=== PATIENT | female | born 1990 | race Caucasian/White ===

== ENCOUNTER 2017-05-05 12:00 | Emergency (ER) | payer MEDICAID ==
[2017-05-05] MEDS ORDERED: NS 0.9% 1000 ML* 1,000 ML IV ONE (12:47)
[2017-05-05] MEDS ORDERED: Promethazine INJ(RESTRICTED)* 25 MG/ML 1 ML VIAL IV ONE (12:47)
[2017-05-05 12:51] LABS: ABS Basophils 0.1 10^3/ul (0-0.2); ABS Eosinophils 0 10^3/ul (0-0.6); ABS Lymphocytes 0.6 10^3/ul (1.0-4.8); ABS Monocytes 0.4 10^3/ul (0-0.8); ABS Neutrophils 9.2 10^3/ul (1.5-7.7); ABS Nucleated RBC 0 10^3/ul; Eosinophil % 0.2 % (0-6); Hematocrit 34 % (35-47); Hemoglobin 11.7 g/dl (12.0-16.0); Lymphocyte % 5.6 % (25-47); Mean Corpuscular HGB Conc 35 g/dl (31-36); Mean Corpuscular Hemoglobin 32 pg (27-31); Mean Corpuscular Volume 92 fL (80-97); Mean Platelet Volume 8 um3 (7.4-10.4); Nucleated Red Blood Cells % 0; Platelet Count 256 10^3/ul (150-450); Red Blood Count 3.68 10^6/ul (4.0-5.4); Red Cell Distribution Width 13 % (10.5-15); White Blood Count 10.3 10^3/ul (3.5-10.8)
[2017-05-05] MEDS ORDERED: Magnesium Sulfate 1 GM IV* 1 GM/100 ML BAG IV ONE (13:02)
[2017-05-05 13:05] LABS: Urine Appearance Clear; Urine Blood Negative (Negative); Urine Color Yellow; Urine Ketones 1+ (Negative); Urine Protein Negative (Negative); Urine Specific Gravity 1.011 (1.010-1.030); Urine Urobilinogen Negative (Negative)
[2017-05-05 13:07] LABS: EGFR Non-African American 145.8 (>60)
[2017-05-05] MEDS ORDERED: Promethazine INJ(RESTRICTED)* 25 MG in NS 0.9% 50 ML* 50 ML IVPB ONE (13:30)
--- NOTE | 2017-05-05 14:14 | ED ---
Headache - HPI Summary HPI Summary: pt here w/ FINK x 3 days. Started as Rt sided FINK which was noticed as an abrupt throbbing and Lt visual change - blurred and partially impaired/missing vision, no aura. She also reports Lt hand numbness and tongue numbness which resolved day of sx onset. She has been "riding it out" without medication as she 's 6 months . Called provider today who recommended trying acetaminophen - she took 1 or 2 grams, does not recall, and came here. She has photophobia, nausea and FINK currently w/ ongoing Lt visual change - blurred. Denies recent illness, URI sx, dehydration, fever, chest pain, ab pain, weakness , rash, cramping, vaginal bleeding/spotting. Baby has been moving same as always. No previous FINK's, migraines, bleeding or vascular d/o's. - History Of Current Complaint Chief Complaint: EDHeadache Stated Complaint: HEADACHE,6 MONTHS PREG Time Seen by Provider: 05/05/17 12:09 Hx Obtained From: Patient - Allergies/Home Medications Allergies/Adverse Reactions: Allergies Allergy/AdvReac Type Severity Reaction Status Date / Time No Known Allergies Allergy Verified 05/05/17 14:07 Home Medications: Home Medications NK [No Home Medications Reported] 05/05/17 [History Confirmed 05/05/17] PMH/Surg Hx/FS Hx/Imm Hx Previously Healthy: Yes Endocrine/Hematology History: Denies: Hx Anticoagulant Therapy, Hx Blood Disorders, Hx Thyroid Disease, Hx Anemia, Hx Unexplained Bleeding, Hx Coagulopothy, Autoimmune Disease Cardiovascular History: Denies: Hx Aneurysm, Hx Atrial Fibrillation, Hx Congenital Heart Disease, Hx Embolism, Hx Hypotension, Hx Hypertension, Hx Rheumatic Fever, Hx Syncope, Hx Valvular Heart Disease Respiratory History: Denies: Hx Asthma GI History: Denies: Hx Cirrhosis Neurological History: Denies: Hx CVA, Hx Headaches, Hx Migraine, Hx Nerve Disease, Hx Peripheral Neuropathy, Hx Transient Ischemic Attacks (TIA) Infectious Disease History: No Infectious Disease History: Denies: Traveled Outside the [place] in Last 30 Days - Social History Lives: With Family Alcohol Use: None Hx Substance Use: No Substance Use Type: Reports: None Hx Tobacco Use: No Smoking Status (MU): Never Smoked Tobacco Review of Systems Constitutional: Negative Negative: Fever, Chills, Fatigue Positive: Photophobia, Blurred Vision. Negative: Diplopia, Drainage, Erythema ENT: Negative Negative: Dental Pain, Sore Throat, Ear Ache, Nasal Discharge Cardiovascular: Negative Negative: Palpitations, Chest Pain Respiratory: Negative Negative: Shortness Of Breath, Cough Positive: Nausea. Negative: Abdominal Pain, Vomiting, Diarrhea Genitourinary: Negative Positive: frequency - has had this throughout . Negative: burning, dysuria, discharge, flank pain, hematuria, incontinence Musculoskeletal: Negative, Other - no neck pain/stiffness Negative: Arthralgia, Myalgia Skin: Negative Positive: Headache. Negative: Weakness, Paresthesia, Numbness, Syncope, Slurred Speech Psychological: Normal - calm but appears to be in pain and concerned All Other Systems Reviewed And Are Negative: Yes Physical Exam Triage Information Reviewed: Yes Vital Signs On Initial Exam: Initial Vitals Temp Pulse Resp BP Pulse Ox 99.5 F 94 20 124/54 98 05/05/17 12:03 05/05/17 12:03 05/05/17 12:03 05/05/17 12:03 05/05/17 12:03 Vital Signs Reviewed: Yes Appearance: Positive: Well-Appearing, Well-Nourished, Pain Distress - pt sitting on edge of stretcherw/ lights out Skin: Positive: Warm, Skin Color Reflects Adequate Perfusion, Dry Head/Face: Positive: Normal Head/Face Inspection - NTTP, no gross deformity Eyes: Positive: Normal, EOMI, AAMYA ENT: Positive: Normal ENT inspection, Hearing grossly normal, Pharynx normal - mucosa moist, TMs normal. Negative: Nasal congestion, Nasal drainage Neck: Positive: Supple, Nontender - no gross thyromegaly, No Lymphadenopathy. Negative: Nuchal Rigidity Respiratory/Lung Sounds: Positive: Clear to Auscultation, Breath Sounds Present Cardiovascular: Positive: Normal, RRR, Pulses are Symmetrical in both Upper and Lower Extremities, Other - no bruits appreciated, S1, S2. Negative: Murmur, Rub Abdomen Description: Positive: Nontender, No Organomegaly, Soft Bowel Sounds: Positive: Present Musculoskeletal: Positive: Normal, Strength/ROM Intact - 5/5 in UE's and LE's equal B/L Neurological: Positive: Sensory/Motor Intact - UE's and LE's equal B/L w/ gross touch and w/ movements, Alert, Oriented to Person Place, Time, CN Intact II-III - EXCEPT she reports blurred vision in Lt eye, Reflexes Intact, Facial Symmetry , Speech Normal. Negative: Finger to Nose - Pt is able to connect her finger to my finger most times but is askew a few times, Pronator Drift Present Psychiatric: Positive: Normal - Kenneth Coma Scale Coma Scale Total: 15 Diagnostics - Vital Signs Vital Signs Temp Pulse Resp BP Pulse Ox 05/05/17 14:00 74 94/47 99 05/05/17 13:30 77 105/55 99 05/05/17 13:00 78 109/61 98 05/05/17 12:32 86 114/58 98 05/05/17 12:30 86 99 05/05/17 12:03 99.5 F 94 20 124/54 98 - Laboratory Lab Results: Lab Results 05/05/17 05/05/17 05/05/17 Range/Units 12:34 12:34 12:34 WBC (3.5-10.8) 10^3/ul RBC (4.0-5.4) 10^6/ul Hgb (12.0-16.0) g/dl Hct (35-47) % MCV (80-97) fL MCH (27-31) pg MCHC (31-36) g/dl RDW (10.5-15) % Plt Count (150-450) 10^3/ul MPV (7.4-10.4) um3 Neut % (Auto) (38-83) % Lymph % (Auto) (25-47) % [place] % (Auto) (1-9) % Eos % (Auto) (0-6) % Baso % (Auto) (0-2) % Absolute Neuts (auto) (1.5-7.7) 10^3/ul Absolute Lymphs (auto) (1.0-4.8) 10^3/ul Absolute Monos (auto) (0-0.8) 10^3/ul Absolute Eos (auto) (0-0.6) 10^3/ul Absolute Basos (auto) (0-0.2) 10^3/ul Absolute Nucleated RBC 10^3/ul Nucleated RBC % ESR (0-14) mm/Hr APTT 28.7 (26.0-36.3) seconds Sodium (133-145) mmol/L Potassium (3.5-5.0) mmol/L Chloride (101-111) mmol/L Carbon Dioxide (22-32) mmol/L Anion Gap (2-11) mmol/L BUN (6-24) mg/dL Creatinine (0.51-0.95) mg/dL Est GFR ( Amer) (>60) Est GFR (Non-Af Amer) (>60) BUN/Creatinine Ratio (8-20) Glucose (70-100) mg/dL Lactic Acid 0.9 (0.5-2.0) mmol/L Calcium (8.6-10.3) mg/dL Magnesium (1.9-2.7) mg/dL Total Bilirubin (0.2-1.0) mg/dL AST (13-39) U/L ALT (7-52) U/L Alkaline Phosphatase (34-104) U/L C-Reactive Protein (< 5.00) mg/L Total Protein (6.4-8.9) g/dL Albumin (3.2-5.2) g/dL Globulin (2-4) g/dL Albumin/Globulin Ratio (1-3) TSH (0.34-5.60) mcIU/mL Urine Color Yellow Urine Appearance Clear Urine pH 6.0 (5-9) Ur Specific [place] 1.011 (1.010-1.030) Urine Protein Negative (Negative) Urine Ketones 1+ H (Negative) Urine Blood Negative (Negative) Urine Nitrate Negative (Negative) Urine Bilirubin Negative (Negative) Urine Urobilinogen Negative (Negative) Ur Leukocyte Esterase Negative (Negative) Urine Glucose Negative (Negative) Influenza A (Rapid) (Negative) Influenza B (Rapid) (Negative) 05/05/17 05/05/17 05/05/17 Range/Units 12:34 12:34 12:54 WBC 10.3 (3.5-10.8) 10^3/ul RBC 3.68 L (4.0-5.4) 10^6/ul Hgb 11.7 L (12.0-16.0) g/dl Hct 34 L (35-47) % MCV 92 (80-97) fL MCH 32 H (27-31) pg MCHC 35 (31-36) g/dl RDW 13 (10.5-15) % Plt Count 256 (150-450) 10^3/ul MPV 8 (7.4-10.4) um3 Neut % (Auto) 89.6 H (38-83) % Lymph % (Auto) 5.6 L (25-47) % [place] % (Auto) 4.1 (1-9) % Eos % (Auto) 0.2 (0-6) % Baso % (Auto) 0.5 (0-2) % Absolute Neuts (auto) 9.2 H (1.5-7.7) 10^3/ul Absolute Lymphs (auto) 0.6 L (1.0-4.8) 10^3/ul Absolute Monos (auto) 0.4 (0-0.8) 10^3/ul Absolute Eos (auto) 0 (0-0.6) 10^3/ul Absolute Basos (auto) 0.1 (0-0.2) 10^3/ul Absolute Nucleated RBC 0 10^3/ul Nucleated RBC % 0 ESR 17 H (0-14) mm/Hr APTT (26.0-36.3) seconds Sodium 133 (133-145) mmol/L Potassium 3.4 L (3.5-5.0) mmol/L Chloride 106 (101-111) mmol/L Carbon Dioxide 20 L (22-32) mmol/L Anion Gap 7 (2-11) mmol/L BUN 4 L (6-24) mg/dL Creatinine 0.51 (0.51-0.95) mg/dL Est GFR ( Amer) 187.5 (>60) Est GFR (Non-Af Amer) 145.8 (>60) BUN/Creatinine Ratio 7.8 L (8-20) Glucose 102 H (70-100) mg/dL Lactic Acid (0.5-2.0) mmol/L Calcium 8.9 (8.6-10.3) mg/dL Magnesium 1.8 L (1.9-2.7) mg/dL Total Bilirubin 0.50 (0.2-1.0) mg/dL AST 13 (13-39) U/L ALT 9 (7-52) U/L Alkaline Phosphatase 40 (34-104) U/L C-Reactive Protein 8.57 H (< 5.00) mg/L Total Protein 6.4 (6.4-8.9) g/dL Albumin 3.8 (3.2-5.2) g/dL Globulin 2.6 (2-4) g/dL Albumin/Globulin Ratio 1.5 (1-3) TSH 0.75 (0.34-5.60) mcIU/mL Urine Color Urine Appearance Urine pH (5-9) Ur Specific [place] (1.010-1.030) Urine Protein (Negative) Urine Ketones (Negative) Urine Blood (Negative) Urine Nitrate (Negative) Urine Bilirubin (Negative) Urine Urobilinogen (Negative) Ur Leukocyte Esterase (Negative) Urine Glucose (Negative) Influenza A (Rapid) Negative (Negative) Influenza B (Rapid) Negative (Negative) Result Diagrams: 05/05/17 12:34 05/05/17 12:34 Lab Statement: Any lab studies that have been ordered have been reviewed, and results considered in the medical decision making process. Headache Course/Dx - Course Course Of Treatment: Pt presents w/ Rt sided FINK x 3 days. Abrupt onset and neuro deficits initially of Lt hand numbness and tongue numbness. This resolved same day - no associated weakness. She is here today w/ persistent FINK and Lt visual field change. at 6 months . HR per OBGYN high 120's and pt and explosive ordnance technician both feel movement. Abnormal labs are as follows: RBC 3.6 HGB 11.7 HCT 34 NEUT 89.6 LYMP 5.6 ABS NEUT 9.2 ABS LYMPH 0.6 ESR 17 K 3.4 CO 20 BUN 4 GLUC 102 MAG 1.8 CRP 8.57 and U/A +1 ketones. Influenza (-). These results along with vitals do not indicate infection, acute hemorrhage. Diff sx pre-eclempsia, aneurysm, embolism, SAH, migraine - discussed w/ Dr. Appiah early on who recommended meds (1 gram magnesium, steroid - IVF and promethazine had already been ordered - no toradol as pt is ) and monitoring - if no change, call back. Pt initially received 1 L NS, promethazine, and magnesium 1 gram IV. She had mild improvement of sx - pain from 9/10 to 6/10. Administered dexamethasone at that time for better improvement as she reports she feels good lying down however Rt sided FINK pounding w/ sitting up. After 30 mins+ of dexamethasone, she reports feeling worse than prior tx. Discussed w/ Dr. Appiah who came to see pt and concerned for more severe issues as well. MRA, MRV w/o contrast ordered as she is . Compazine with benadryl was also ordered prior to MRI. If no hemorrhage identified on MR's, Dr. Appiah suggests LP. Discussed w/ Dr. Romero who will take sign out. Pt stable at time of transition of care. - Diagnoses Provider Diagnoses: Visual field defect of left eye, Right-sided headache Discharge - Discharge Plan Condition: Guarded Disposition: OTHER Discharge Disposition Comment: sign out Referrals: No Primary Care Phys,NOPCP [Primary Care Provider] -
[2017-05-05] MEDS ORDERED: Dexamethasone IV* 4 MG/ML 1 ML (4 MG) IV SLOW PU ONE (14:59)
[2017-05-05] MEDS ORDERED: diPHENhydraMINE IV* 50 MG/ML 1 ml VIAL (BENADRYL) IV ONE (18:03)
[2017-05-05] MEDS ORDERED: PROCHLORPERAZINE INJ 5 MG/ML 2 ML VIAL IV ONE (18:06)
--- NOTE | 2017-05-05 19:51 | RAD ---
INDICATION: Headaches COMPARISON: None TECHNIQUE: 3-D phase contrast, axial source images was acquired. Reconstructed images of the anterior posterior circulation were generated. FINDINGS: Right carotid: The carotid artery at the skull base, carotid siphon, and carotid termination appear normal. Left carotid: The carotid artery at the skull base, carotid siphon, and carotid termination appear normal. Right middle and anterior cerebral arteries: There are no MR angiographic abnormalities of the middle or anterior cerebral arteries. Left middle and anterior cerebral arteries: There are no MR angiographic abnormalities of the middle or anterior cerebral arteries Right vertebral: The MR angiographic appearance of the visualized vertebral artery is normal. Left vertebral: The MR angiographic appearance of the visualized vertebral artery is normal. Basilar artery: The basilar artery and basilar tip appear normal. Posterior cerebral arteries: The distal distribution of the right and left posterior cerebral arteries is normal. [place]: The MR angiographic appearance of the [place] is normal. Source images show no focal brain parenchymal abnormalities or abnormal areas of enhancement. IMPRESSION: NEGATIVE EXAMINATION.
--- NOTE | 2017-05-05 19:58 | RAD ---
INDICATION: Headaches COMPARISON: None TECHNIQUE: Multiplanar 2-D [id number] imaging was performed. 3-D reconstructed images were generated. There is no evidence of thrombus within the dural sinuses are larger cortical venous structures. The MR appearance is within normal limits. IMPRESSION: NO EVIDENCE OF CEREBRAL VENOUS THROMBOSIS
--- NOTE | 2017-05-05 22:23 | CONS ---
NEUROLOGY CONSULTATION NOTE: DATE OF CONSULTATION: 05/05/17 - EMERGENCY DEPT REFERRING PROVIDER: DEMARIO Mckeon LOCATION: She is in the emergency room. CHIEF COMPLAINT: Headache. HISTORY OF PRESENT ILLNESS: Mina Araujo is a 26-year-old right-handed woman who is 6 months and was in her usual state of health on Thursday. Two days ago in the middle of the day, when she bent down to pick something up and when she stood up, had a severe apical headache. It has been present ever since. It became more right sided than left sided over time. Shortly after the headache, she noted that there was diminished vision in her left visual field. Has persisted ever since as well, but an hour after that, she felt numbness in the left side of her face and hand. That resolved in an hour or less. The headache has persisted for several days. It was worse at times when she would lie down and so she would have to sit up or stand and other times she felt better lying down. She has not had problems with headaches in the past. She is not on any medications other than vitamins. There is no history of hypertension or hypotension or clotting disorders. She is a nonsmoker. There is no family history of headache disorders. Her brother who is alive had some type of pediatric brain tumor. PAST MEDICAL HISTORY: Benign. She has been in excellent health. MEDICATIONS: She does not take any medications at home other than vitamins. ALLERGIES: She does not have any drug allergies. SOCIAL HISTORY: She is a nonsmoker, does not drink alcohol during the , does not do drugs. REVIEW OF SYSTEMS: There is no history of cardiac disease, clotting disorders, rheumatological problems. There is no history of endocrine disorders. has been going along uneventfully. PHYSICAL EXAMINATION: She is well hydrated and well nourished. Temperature was 99.5 by temporal scan when she came in. Blood pressures running about 150/ 90 when last checked, but was 80 to 90 systolic over 50 earlier. Heart rate is in the 80s and regular. Respiratory rate is 20 and oxygen saturation is 98% on room air. Heart is in a regular rate and rhythm and I do not hear any murmurs. Carotid pulses are present and no cervical bruits. Oral mucosa is moist and there is no pharyngeal erythema or exudate. She has pain with neck flexion in her neck and up the back of her head, but she is able to do it. Straight leg raising is negative bilaterally. Skin is warm and dry. Neurologically, pupils react equally from 5 mm down to 2.5. Eye movements are normal. Visual strong are suspicious for partial left superior quadrantanopsia. Funduscopic exam reveals a sharp disc on the right and it appears to be a normal disc on the left as well, although I did not get as good a view. She is photophobic. Eye movements are normal. Facial musculature is symmetric. Facial sensation to light touch is symmetric. Palate and tongue appear normal and speech is clear. Motor exam reveals antigravity strength symmetrically in all limbs. There is no tremor, asterixis, or myoclonus. Reflexes are hypoactive, but present in the extremities. Her plantar responses are flexor bilaterally. She is alert and oriented to person, place and time. She is an excellent historian with intact memory. Language is fluent. Attention, concentration, and fund of knowledge are all adequate. LABORATORY DATA: Includes a chemistry profile notable for carbon dioxide at 20 and otherwise unremarkable. Glucose is 102 and magnesium was a little bit low at 1.8. CRP is mildly elevated at 8.57 and TSH is normal at 0.75. CBC notable for hemoglobin of 11.7, white cell count 10.3, 90% neutrophils. Platelet count is 256,000. Sedimentation rate is mildly elevated at 17. Urinalysis is clear. Rapid influenza A and B tests are negative. IMPRESSION: A new onset headache which may be migraine, but was of sudden onset and severe. She has persistent visual symptoms if not deficits. Therefore, I think she does need a lumbar puncture to rule out a subarachnoid hemorrhage or a meningitis and also MRI scan of the brain. We may need to consider MR venogram, but I do not want to give her contrast unless it is necessary, so I would first do a noncontrast MRI of the brain and then check the spinal fluid. If those are both completely normal, then we may just continue symptomatic treatment with antiemetics such as possibly Compazine plus diphenhydramine and another dose of magnesium. I have discussed my impression with Denise Fang, who is contacting Radiology to arrange the MRI scan and then subsequent lumbar puncture. [id number]/[facility] #: [id number] [facility]
[2017-05-06 00:37] VITALS: BP 102/56
--- NOTE | 2017-05-06 20:34 | ED ---
Nicky Del Rosario Emily, scribed for Aurelio Chacon MD on 05/06/17 at 0013 . Progress - Progress Note Progress Note: Sign of from Dr. Romero upon shift change pending CSF. Re-evaluation at 0007. BP 90/60. Awake and alert. Vision improving. Migraine improving. Pt is stable for discharge to home. Re-Evaluation - Re-Evaluation First Eval Re-Evaluation Time: 00:07 Change: Improved Course/Dx - Course Course Of Treatment: Pt presents w/ Rt sided FINK x 3 days. Abrupt onset and neuro deficits initially of Lt hand numbness and tongue numbness. This resolved same day - no associated weakness. She is here today w/ persistent FINK and Lt visual field change. at 6 months . 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 Abnormal labs are as follows: RBC 3.6 HGB 11.7 HCT 34 NEUT 89.6 LYMP 5.6 ABS NEUT 9.2 ABS LYMPH 0.6 ESR 17 K 3.4 CO 20 BUN 4 GLUC 102 MAG 1.8 CRP 8.57 and U/A +1 ketones. Influenza (-). These results along with vitals do not indicate infection, acute hemorrhage. Diff sx pre-eclempsia, aneurysm, embolism, SAH, migraine - discussed w/ Dr. Appiah early on who recommended meds (1 gram magnesium, steroid - IVF and promethazine had already been ordered - no toradol as pt is ) and monitoring - if no change, call back. Pt initially received 1 L NS, promethazine, and magnesium 1 gram IV. She had mild improvement of sx - pain from 01/04 to 10/04. Administered dexamethasone at that time for better improvement as she reports she feels good lying down however Rt sided FINK pounding w/ sitting up. After 30 mins+ of dexamethasone, she reports feeling worse than prior tx. Discussed w/ Dr. Appiah who came to see pt and concerned for more severe issues as well. MRA, MRV w/o contrast ordered as she is . Compazine with benadryl was also ordered prior to MRI. If no hemorrhage identified on MR's, Dr. Appiah suggests LP. Discussed w/ Dr. Romero who will take sign out. Pt stable at time of transition of care. - Diagnoses Provider Diagnoses: Right-sided headache, Blurred vision, left eye The documentation as recorded by the Nicky vega Emily accurately reflects the service I personally performed and the decisions made by me, Aurelio Chacon MD.
--- NOTE | 2017-05-07 13:54 | ED ---
Del Del Rosario Stephanie, scribed for Del Romero MD on 05/05/17 at 2038 . Progress - Progress Note Progress Note: Upon re-eval, the patient's headache has decreased down to a 3 in severity. ED physician discussed lumbar puncture risks to pt. She and her will discuss the risks. Lumbar Puncture Note: L4 L5 L lateral decubitus. Risks and benefits of the procedure were explained to the patient and excepted. 4 mL of clear fluid were obtained and tolerated well. Opening pressure was 17. Dr. Appiah evaluated pt in ED. See his dictated note. Told him of significant improvement in symptoms after Compazine. PT still having some visual deficit. Td recommended DC if CSF WNL. Signed out to [facility] with CSF pending. Re-Evaluation - Re-Evaluation First Eval Re-Evaluation Time: 00:07 Change: Improved Course/Dx - Course Course Of Treatment: Pt presents w/ Rt sided FINK x 3 days. Abrupt onset and neuro deficits initially of Lt hand numbness and tongue numbness. This resolved same day - no associated weakness. She is here today w/ persistent FINK and Lt visual field change. at 6 months . HR per OBGYN high 120's and pt and geotechnical field technician both feel movement. Abnormal labs are as follows: RBC 3.6 HGB 11.7 HCT 34 NEUT 89.6 LYMP 5.6 ABS NEUT 9.2 ABS LYMPH 0.6 ESR 17 K 3.4 CO 20 BUN 4 GLUC 102 MAG 1.8 CRP 8.57 and U/A +1 ketones. Influenza (-). These results along with vitals do not indicate infection, acute hemorrhage. Diff sx pre-eclempsia, aneurysm, embolism, SAH, migraine - discussed w/ Dr. Appiah early on who recommended meds (1 gram magnesium, steroid - IVF and promethazine had already been ordered - no toradol as pt is ) and monitoring - if no change, call back. Pt initially received 1 L NS, promethazine, and magnesium 1 gram IV. She had mild improvement of sx - pain from 9/10 to 6/10. Administered dexamethasone at that time for better improvement as she reports she feels good lying down however Rt sided FINK pounding w/ sitting up. After 30 mins+ of dexamethasone, she reports feeling worse than prior tx. Discussed w/ Dr. Appiah who came to see pt and concerned for more severe issues as well. MRA, MRV w/o contrast ordered as she is . Compazine with benadryl was also ordered prior to MRI. If no hemorrhage identified on MR's, Dr. Appiah suggests LP. Discussed w/ Dr. Romero who will take sign out. Pt stable at time of transition of care. - Diagnoses Provider Diagnoses: Right-sided headache, Blurred vision, left eye The documentation as recorded by the Del vega Stephanie accurately reflects the service I personally performed and the decisions made by me, Del Romero MD.
== END 2017-05-06 00:19 | disposition home or self-care (01) ==
LOC: ED 12:00
DX: O26.892 Other specified pregnancy related conditions, second trimester (principal); Z3A.00 Weeks of gestation of pregnancy not specified; R51 Headache; H53.40 Unspecified visual field defects
CPT/HCPCS: 36415; 70544; 80053; 81003; 82945; 83605; 83735; 84157; 84443; 85025; 85652; 85730; 86140; 87070; 87205; 87502; 89051; 93005; 96361; 96365; 96367; 96375; 99284; J0780; J1100; J1200; J2550; J3475

== ENCOUNTER 2017-09-03 05:01 | Inpatient (IN) | payer OTHER ==
--- NOTE | 2017-09-03 05:33 | PN ---
Progress Note - Progress Note Date of Service: 09/03/17 Note: S: Paged by RN. Pt presented through the ER with c/o uterine contractions at 41 + weeks. Denies LOF. No VB. Reports +FM O: BP 129/68 HR 69 FHT: 125bpm. Moderate variability. No decels UCs q 2-4 min VE per RN 1cm/50%/vtx ballotable A: IUP at 41+ weeks in latent labor No evidence of metabolic acidemia P: Outpatient orders input. RN to re-check pt in one hour or sooner PRN and report to CNM
--- NOTE | 2017-09-03 07:07 | HP ---
General Information - General Information Maternal Age: 27 Grav: 3 Para: 0 SAB: 0 IEA: 2 Estimated Due Date: 08/25/17 Determined By: LMP Gestational Age in Weeks and Days: 41 Weeks and 2 Days Maternal Blood Type and Rh: O Negative - Results this Serology/RPR Result: Non-Reactive Rubella Result: Immune HBsAg Result: Negative HIV Result: Negative GBS Culture Result: Negative Past Medical History Delivery History: See Records Delivery History Comment: primip Pertinent Past Medical History: See Records Past Medical History Comment: Hx migraine Pertinent Past Surgical History: None Pertinent Family History: See Records Family History Comment: PGF: COPD MGM: bone cancer - Antepartal Records Antepartal Records: Reviewed, Uncomplicated Review of Systems Constitutional: Uncomfortable - with UCs CV Complaint: No Respiratory: Shortness of Breath: No Gastrointestinal: No Nausea/Vomiting, Normal Bowel Movement Genitourinary: No Dysuria, No Bleeding, No Leaking Fluid Musculoskeletal: Contractions Neurological: No Headache Movement: Normal Exam Allergies/Adverse Reactions: Allergies No Known Allergies Allergy (Verified 06/17/17 14:08) BP 129/68 HR 71 RR 18 T 98.4 - Measurements Height: 5 ft 8 in Weight: 189 lb Weight in lbs: 189 Body Mass Index (BMI): 28.7 Pre- Weight: 155 lb 0.006 oz Weight Gained This : 33.999 lbs and 0.010 ozs - Exam Abdomen: No Upper Quadrant Pain Breast: Breast Exam Deferred CVA: No CVA Tenderness Extremities: Edema - Bilateral pedal edema. 1+ Heart: Normal Rhythm/Heart Sounds HEENT: No Significant Findings Lungs: Clear Bilaterally Rectal: Rectal Exam Deferred Reflexes: DTR 2+ Thyroid: No Thyromegaly - Abdominal Exam Abdomen Exam: Non-Tender - between UCs, Fundal Height Consistent with Dates Abdomen Exam Comment: UCs q 2-4 min - Ultrasound/Biophysical Profile Ultrasound Status: Not Done Targeted Exam Findings See L&D Outpatient Visit Provider Note for Findings: N/A Cervical Exam: 2cm Effacement: 50% Station: -3 Presenting Part: Vertex Membrane Status: Intact Sterile Speculum Exam: Not done Bleeding/Discharge: None EFM Findings - External Monitor Findings Baseline Heart Rate: 125 External Monitor Findings: No Pattern of Variable or Late Decelerations, Variability Moderate, Baseline Stable, Accelerations Absent External Monitor Findings Comment: No evidence of metabolic acidemia Contractions: Regular, Mild, Moderate, 45-90 Seconds Contraction Frequency: q2-4 minutes Assessment/Plan - Reason for Visit Reason for Visit: Labor - Obstetrical Risk Factors Risk Factors Comment: None. Hx 1/2 PPD smoking prior to . Quit with + urine hCG - Plan Plan: Observe, Early Labor Plan Comment: Admit. Expectant management for now. Report to Carol Wolfe CNM who will assume care at 0800
[2017-09-03] MEDS ORDERED: RHO D Immune Globulin (HUMAN)* 300 MCG = 1,500 I.U. INJ IM ONE (10:16)
[2017-09-03] MEDS ORDERED: Glycerin ADULT SUPP PR PRN (10:16)
[2017-09-03] MEDS ORDERED: OXYTOCIN* 10 UNITS/ML 1 ML VIAL IM ONE (10:16)
[2017-09-03] MEDS ORDERED: Acetaminophen TAB* 325 MG PO PRN (10:16)
[2017-09-03] MEDS ORDERED: Witch Hazel PAD* JAR TOPICAL PRN (10:16)
[2017-09-03] MEDS ORDERED: Ibuprofen TAB* 600 MG PO PRN (10:16)
[2017-09-03] MEDS: Docusate CAP* 100 MG PO SCH (15:56)
[2017-09-03] MEDS: Dibucaine 1% 28.35 GM TUBE PR PRN (17:40)
[2017-09-04] MEDS: Docusate CAP* 100 MG PO SCH ×4 (00:24→20:39)
[2017-09-04 07:12] LABS: Hematocrit 30 % (35-47); Hemoglobin 10.3 g/dl (12.0-16.0); Mean Corpuscular HGB Conc 35 g/dl (31-36); Mean Corpuscular Hemoglobin 32 pg (27-31); Mean Corpuscular Volume 93 fL (80-97); Mean Platelet Volume 8.1 um3 (7.4-10.4); Platelet Count 248 10^3/ul (150-450); Red Cell Distribution Width 13 % (10.5-15); White Blood Count 10.7 10^3/ul (3.5-10.8)
[2017-09-04] MEDS ORDERED: Ferrous Gluconate TAB* 324 MG TAB PO SCH (09:00)
[2017-09-04] MEDS ORDERED: Tetan/Diph/Pertus SYR(Tdap)* 0.5 ML SYR(BOOSTRIX) use SYR IM ONE (09:00)
--- NOTE | 2017-09-04 11:36 | PTEDU ---
Patient Name: FEDERICO JUAREZ ANNFEDERICO selected video: Never Ever Shake a Baby to view on 09/04/2017 at 11:35:00 AM [id number]
[2017-09-05] MEDS: Dibucaine 1% 28.35 GM TUBE PR PRN (07:55)
[2017-09-05] MEDS: Docusate CAP* 100 MG PO SCH (08:00)
[2017-09-05 08:10] VITALS: BP 113/65
== END 2017-09-05 13:55 | disposition home or self-care (01) | DRG 560 ==
LOC: MCHOBOUT 05:01 → MCHOB 06:41
PROVIDERS: ADMIT Midwife; ATTEND Midwife
PROC: 10E0XZZ Delivery of Products of Conception, External Approach (ICD-10-PCS; principal; 2017-09-03)
PROC: 0HQ9XZZ Repair Perineum Skin, External Approach (ICD-10-PCS; 2017-09-03)
DX: O48.0 Post-term pregnancy (principal); O70.0 First degree perineal laceration during delivery; O77.0 Labor and delivery complicated by meconium in amniotic fluid; Z3A.41 41 weeks gestation of pregnancy; Z37.0 Single live birth; Z87.891 Personal history of nicotine dependence
CPT/HCPCS: 36415; 85027; 85461; 86900; 86901; 90715; 99282; A9270-GY; J2590; J2790

== ENCOUNTER 2018-02-04 10:49 | Emergency (ER) | payer MEDICAID ==
--- NOTE | 2018-02-04 12:14 | ED ---
Abdominal Pain/Female - HPI Summary HPI Summary: 27 y/o female presents to the ED c/o R side ABD pain described as cramping, lasting months. Pt c/o ABD swelling today as well. Pain aggravated with deep breaths, becomes a sharp pain. Pain rated 6-7/10 in severity. Symptoms appeared after the pt had her baby 5 months ago. Pt seen at Urgent Care. Denies PMHx and Sx. - History of Current Complaint Chief Complaint: EDAbdPain Stated Complaint: ABD PAIN Time Seen by Provider: 02/04/18 11:57 Hx Obtained From: Patient Onset/Duration: Lasting Weeks, Still Present Timing: Constant Severity Currently: Moderate Pain Intensity: 6 Pain Scale Used: 0-10 Numeric Location: Discrete At: RUQ Character: Sharp - with deep breaths, Cramping Aggravating Factor(s): Deep Breaths Alleviating Factor(s): Nothing Associated Signs and Symptoms: Positive: Other: - ABD swelling Allergies/Adverse Reactions: Allergies Allergy/AdvReac Type Severity Reaction Status Date / Time No Known Allergies Allergy Verified 02/04/18 11:13 PMH/Surg Hx/FS Hx/Imm Hx Previously Healthy: No Endocrine/Hematology History: Denies: Hx Anticoagulant Therapy, Hx Blood Disorders, Hx Diabetes, Hx Thyroid Disease, Hx Anemia, Hx Unexplained Bleeding Cardiovascular History: Denies: Hx Aneurysm, Hx Atrial Fibrillation, Hx Congenital Heart Disease, Hx Embolism, Hx Hypotension, Hx Hypertension, Hx Pacemaker/ICD, Hx Rheumatic Fever , Hx Syncope, Hx Valvular Heart Disease Respiratory History: Denies: Hx Asthma GI History: Denies: Hx Cirrhosis History: Denies: Hx Renal Disease Sensory History: Denies: Hx Hearing Aid Neurological History: Denies: Hx CVA, Hx Headaches, Hx Migraine, Hx Nerve Disease, Hx Peripheral Neuropathy, Hx Transient Ischemic Attacks (TIA) Psychiatric History: Denies: Hx Panic Disorder - Surgical History Surgery Procedure, Year, and Place: WISDOM TEETH Infectious Disease History: No Infectious Disease History: Denies: Traveled Outside the [place] in Last 30 Days - Social History Alcohol Use: None Hx Substance Use: No Substance Use Type: Reports: None Hx Tobacco Use: No Smoking Status (MU): Never Smoked Tobacco Review of Systems Constitutional: Negative Eyes: Negative ENT: Negative Cardiovascular: Negative Respiratory: Negative Positive: Abdominal Pain, Other - ABD swelling Genitourinary: Negative Musculoskeletal: Negative Skin: Negative Neurological: Negative Psychological: Normal All Other Systems Reviewed And Are Negative: Yes Physical Exam - Summary Physical Exam Summary: VITAL SIGNS: Reviewed. GENERAL: Patient is a well-developed and nourished female who is lying comfortable in the stretcher. Patient is not in any acute respiratory distress. HEAD AND FACE: Normocephalic and atraumatic. EYES: PERRLA, EOMI x 2, No injected conjunctiva. EARS: Hearing grossly intact. Ear canals and tympanic membranes are WNL. MOUTH: Oropharynx within normal limits. NECK: Supple, trachea is midline, no adenopathy, no JVD. CHEST: Symmetric, no tenderness at palpation LUNGS: Clear to auscultation bilaterally. No wheezing or crackles. CVS: RRR, S1 and S2 present, no murmurs or gallops appreciated. ABDOMEN: Soft, positive RUQ tenderness. No signs of distention. Positive bowel sounds. No rebound no guarding, and no masses palpated. No abdominal bruit or pulsations. EXTREMITIES: FROM in all major joints, no edema, no cyanosis or clubbing. NEURO: Alert and oriented x 3. No acute neurological deficits. Speech is normal. SKIN: Dry and warm Triage Information Reviewed: Yes Vital Signs On Initial Exam: Initial Vitals Temp Pulse Resp BP Pulse Ox 97.9 F 111 15 139/107 98 02/04/18 11:09 02/04/18 11:09 02/04/18 11:09 02/04/18 11:09 02/04/18 11:09 Vital Signs Reviewed: Yes Diagnostics - Vital Signs Vital Signs Temp Pulse Resp BP Pulse Ox 02/04/18 11:09 97.9 F 111 15 139/107 98 - Laboratory Result Diagrams: 02/04/18 12:26 02/04/18 12:26 Lab Statement: Any lab studies that have been ordered have been reviewed, and results considered in the medical decision making process. - Radiology CXR Xray Interpretation: No Acute Changes - No active cardiopulmonary disease Radiology Interpretation Completed By: Radiologist - ED PHYSICIAN REVIEWS AND AGREES - Ultrasound No standard instances Ultrasound Interpretation Completed By: Radiologist - GALLBLADDER US - NO ACUTE SONOGRAPHIC PATHOLOGY OF THE VISUALIZED PORTION OF THE ABDOMEN. ED PHYSICIAN REVIEWS AND AGREES - EKG 1 EKG Interpretation: SR @ [address] [place], similar to EKG done on Re-Evaluation - Re-Evaluation 1 Re-Evaluation Time: 14:40 Comment: discuss plan to d/c Abdominal Pain Fem Course/Dx - Course Course Of Treatment: 27 y/o female presents to the ED c/o R side ABD pain described as cramping, lasting months. Pt c/o ABD swelling today as well. Pain aggravated with deep breaths, becomes a sharp pain. Pain rated 6-7/10 in severity. Symptoms appeared after the pt had her baby 5 months ago. Pt seen at Urgent Care. Denies PMHx and Sx. Chest x-ray impression: No active cardiopulmonary disease. Blood tests without any significant abnormality. Gallbladder ultrasound impression: No acute sonographic pathology of the visualized portion of the abdomen. D-dimer is less than 200 and has since the patient is not having any shortness of breath or hypoxia or tachycardia I have low suspicion for PE. Chest x-ray impression: No active cardiopulmonary disease. At this point I offered the patient Toradol for the pain. Since TEST results are negative I offered the patient an abdominopelvic CT however the patient declined. I discussed all the findings and test results with the patient. Patient was instructed to return to the emergency room immediately if any of the symptoms return or worsens. Plan of care was discussed with the patient and understands and agrees. All questions were answered at patient satisfaction. There were no further complaints or concerns. Lung exam before discharge: CTA B/L. Good air exchange. No wheezing or crackles heard. CVS: S1 and S2 present. No murmurs appreciated. Patient is alert and oriented x 3. Patient is hemodynamically stable. Patient will be discharged home with follow up PCP in the next 2-3 days - Diagnoses Differential Diagnosis: Positive: Constipation, Urinary Tract Infection Provider Diagnoses: RUQ abdominal pain Discharge - Sign-Out/Discharge Documenting (check all that apply): Patient Departure - Discharge Plan Condition: Stable Disposition: HOME Prescriptions: Omeprazole CAP* [Prilosec CAP* 20 MG] 20 mg PO DAILY #20 Patient Education Materials: Abdominal Pain (ED) Referrals: [facility] [Outside] - 4 Days (PLEASE F/U IN 3-5 DAYS) Additional Instructions: RETURN TO THE ED FOR WORSENING SYMPTOMS - Billing Disposition and Condition Condition: STABLE Disposition: Home - Attestation Statements Document Initiated by Scribe: Yes Documenting Scribe: Cullen Wilson Provider For Whom Scribe is Documenting (Include Credential): Marquis Bey MD Scribe Attestation: I, Cullen Wilson, scribed for Marquis Bey MD on 02/04/18 at 1757. Scribe Documentation Reviewed: Yes Provider Attestation: The documentation as recorded by the Cullen vega accurately reflects the service I personally performed and the decisions made by me, Marquis Bey MD
[2018-02-04 12:52] LABS: ABS Basophils 0 10^3/ul (0-0.2); ABS Eosinophils 0 10^3/ul (0-0.6); ABS Lymphocytes 0.6 10^3/ul (1.0-4.8); ABS Monocytes 0.4 10^3/ul (0-0.8); ABS Neutrophils 2.5 10^3/ul (1.5-7.7); ABS Nucleated RBC 0 10^3/ul; Eosinophil % 0.2 % (0-6); Hematocrit 36 % (35-47); Hemoglobin 12.1 g/dl (12.0-16.0); Mean Corpuscular HGB Conc 34 g/dl (31-36); Mean Corpuscular Hemoglobin 31 pg (27-31); Mean Corpuscular Volume 93 fL (80-97); Mean Platelet Volume 8.9 um3 (7.4-10.4); Nucleated Red Blood Cells % 0.1; Platelet Count 205 10^3/ul (150-450); Red Blood Count 3.88 10^6/ul (4.00-5.40); Red Cell Distribution Width 15 % (10.5-15); White Blood Count 3.6 10^3/ul (3.5-10.8)
[2018-02-04 13:16] LABS: EGFR Non-African American 92.7 (>60)
--- NOTE | 2018-02-04 13:28 | RAD ---
HISTORY: RUQ pain COMPARISONS: None TECHNIQUE: Multiple transverse and longitudinal ultrasound images were obtained of the right upper quadrant of the abdomen using grayscale and color Doppler imaging. FINDINGS: LIVER: The liver is normal in shape, size, contour, and echogenicity. There are no focal parenchymal masses. There is normal hepatopedal flow of the portal vein on Doppler imaging. BILIARY TREE: There is no intrahepatic or extrahepatic biliary dilatation. The common duct measures 0.2 cm. GALLBLADDER: The gallbladder is slightly contracted. There is no cholelithiasis, gallbladder wall thickening, pericholecystic fluid, or sonographic Alvarez sign. PANCREAS: The head of the pancreas is unremarkable. The tail of the pancreas is not well visualized secondary to overlying bowel gas. RIGHT KIDNEY: The right kidney is normal in shape, size, contour, and echogenicity. There is no hydronephrosis or nephrolithiasis. The right kidney measures 11.9 4.85, 4.2 cm. AORTA AND IVC: The aorta and IVC are unremarkable. FLUID: There are no pleural effusions. There is no free fluid within the hepatorenal recess. OTHER FINDINGS: None. IMPRESSION: NO ACUTE SONOGRAPHIC PATHOLOGY OF THE VISUALIZED PORTION OF THE ABDOMEN.
--- NOTE | 2018-02-04 13:41 | RAD ---
HISTORY: RUQ pain COMPARISONS: None VIEWS: 4: Frontal dual-energy and lateral views of the chest. FINDINGS: CARDIOMEDIASTINAL SILHOUETTE: The cardiomediastinal silhouette is normal. SALAS: The salas are normal. PLEURA: The costophrenic angles are sharp. No pleural abnormalities are noted. LUNG PARENCHYMA: The lungs are clear. ABDOMEN: The upper abdomen is clear. There is no subphrenic gas. BONES AND SOFT TISSUES: No bone or soft tissue abnormalities are noted. OTHER: None. IMPRESSION: NO ACTIVE CARDIOPULMONARY DISEASE.
[2018-02-04] MEDS ORDERED: Ketorolac INJ* 30 MG/ML 1 ML VIAL IV PUSH ONE (14:27)
[2018-02-04] MEDS ORDERED: Ketorolac INJ* 60 MG/2 ML VIAL IM ONE (14:34)
[2018-02-04 15:10] VITALS: BP 120/76
== END 2018-02-04 15:09 | disposition home or self-care (01) ==
LOC: ED 10:49
DX: R10.11 Right upper quadrant pain (principal)
CPT/HCPCS: 36415; 71046; 76705; 80053; 82150; 83605; 83690; 84702; 85025; 85379; 86140; 93005; 96372; 96374; 99282; J1885